=== PATIENT | male | born 1960 | race Caucasian/White ===

== ENCOUNTER → 2017-06-27 | Outpatient (CLI) | payer OTHER ==
--- NOTE | 2017-06-27 11:31 | 2DMMODE ---
[place] [address] 2 D/M-MODE ECHOCARDIOGRAM Name: LYRIC PASTRANA Room: [facility]#: [id number] Admission: 06/27/17 Attend Phys: Jose Antonio Pena, Discharge: Date of : 60 Date of Service: 06/27/17 1131 Report #: [id number] THIS REPORT FOR: //name// APPROVED REPORT Study performed: 06/27/2017 09:58:18 EXAM: Comprehensive 2D, Doppler, and color-flow Echocardiogram Patient Location: Out-Patient Status: routine BSA: 2.31 HR: 72 bpm BP: 132/80 mmHg Other Information Study Quality: Good Indications Dyspnea 2D Dimensions LVEF(%): 61.38 (>50%) IVSd: 11.11 (7-11mm) LVOT Diam: 20.18 (18-24mm) LVDd: 38.42 mm PWd: 11.25 (7-11mm) Ascending Ao: 31.15 (22-36mm) LVDs: 25.98 (25-40mm) Aortic Root: 26.24 mm Chase's LVEF: 61.38 % Volumes Left Atrial Volume (Systole) LA ESV Index: 17.50 mL/m2 Aortic Valve AoV Peak Curt.: 1.30 m/s AO Peak Gr.: 6.71 mmHg LVOT Max P.08 mmHg AO Mean Gr.: 3.49 mmHg LVOT Mean P.54 mmHg LVOT Max V: 0.88 m/s AO V2 VTI: 22.23 cm LVOT Mean V: 0.57 m/s JIMENEZ (VTI): 2.71 cm2 LVOT V1 VTI: 18.87 cm Mitral Valve E/A Ratio: 1.22 MV Decel. Time: 198.91 [place] [address] 2 D/M-MODE ECHOCARDIOGRAM Name: LYRIC PASTRANA Room: [facility]#: [id number] Admission: 06/27/17 Attend Phys: Jose Antonio Pena, Discharge: Date of : 60 Date of Service: 06/27/17 1131 Report #: [id number] MV E Max Curt.: 0.70 m/s MV PHT: 57.68 ms MVA (PHT): 3.81 cm2 TDI E/Lateral E': 5.83 E/Medial E': 8.75 Medial E' Curt.: 0.08 m/s Lateral E' Curt.: 0.12 m/s Pulmonary Valve PV Peak Curt.: 1.14 m/s PV Peak Gr.: 5.21 mmHg Left Ventricle The left ventricle is normal size. There is normal LV segmental wall motion. Mild concentric left ventricular hypertrophy. Left ventricular systolic function is normal. The left ventricular ejection fraction is within the normal range. LVEF is 55-60%. The left ventricular diastolic function is normal. Right Ventricle The right ventricle is normal size. The right ventricular systolic function is normal. Atria The left atrium size is normal. The right atrium size is normal. Aortic Valve The aortic valve is normal in structure. No aortic regurgitation is present. There is no aortic valvular stenosis. Mitral Valve The mitral valve is normal in structure. There is no mitral valve regurgitation noted. No evidence of mitral valve stenosis. Tricuspid Valve The tricuspid valve is normal in structure. There is no tricuspid valve regurgitation noted. Pulmonic Valve Pulmonic valve is not well visualized. Mild pulmonic regurgitation. Great Vessels The aortic root is normal in size. IVC is normal in size and collapses with >50% [place] [address] 2 D/M-MODE ECHOCARDIOGRAM Name: LYRIC PASTRANA Room: [facility]#: [id number] Admission: 06/27/17 Attend Phys: Jose Antonio Pena, Discharge: Date of : 60 Date of Service: 06/27/17 1131 Report #: [id number] Pericardium There is no pericardial effusion. <Conclusion> Left ventricular systolic function is normal. The left ventricular ejection fraction is within the normal range. <ELECTRONICALLY SIGNED> By: Zain Hackett MD, FACC 06/27/17 1131 113 113 Zain Hackett MD, FACC /INF
== END ==
LOC: M.CRD 06-09 15:46
DX: I37.1 Nonrheumatic pulmonary valve insufficiency (principal); G45.9 Transient cerebral ischemic attack, unspecified; R55 Syncope and collapse